=== PATIENT | male | born 2000 | race Caucasian/White ===

== ENCOUNTER 2019-10-22 01:29 | Emergency (ER) | payer OTHER, SELFPAY ==
[2019-10-22] MEDS ORDERED: CYCLOBENZAPRINE 10 MG TAB ONE (02:32)
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
--- NOTE | 2019-10-22 09:25 | RAD REPORT ---
EXAM DESCRIPTION: [facility] Single View10/22/2019 4:39 am CLINICAL HISTORY: Chest pain COMPARISON: 2017 FINDINGS: The lungs appear clear of acute infiltrate. The heart is normal size IMPRESSION: No acute abnormalities displayed
--- NOTE | 2019-10-22 09:28 | RAD REPORT ---
EXAM DESCRIPTION: RAD - Ankle Right 3 View - 10/22/2019 9:18 am CLINICAL HISTORY: Right ankle pain FINDINGS: No fracture or dislocation is seen. No bone or joint abnormality
== END 2019-10-22 02:47 | disposition home or self-care (01) ==
LOC: ER 01:29
DX: R51 Headache (principal); R07.9 Chest pain, unspecified; M25.571 Pain in right ankle and joints of right foot; V43.52XA Car driver injured in collision with other type car in traffic accident, initial encounter; Y93.89 Activity, other specified; Y92.410 Unspecified street and highway as the place of occurrence of the external cause
CPT/HCPCS: 71045; 99284

== ENCOUNTER 2019-11-24 22:28 | Emergency (ER) | payer SELFPAY ==
[2019-11-24] MEDS ORDERED: HYDROCODONE/CHLORPHEN 5 ML/OSYR ONE (23:43)
[2019-11-24] MEDS ORDERED: ALBUTEROL 2.5 MG/3 ML NEB SOL ONE (23:43)
[2019-11-24] MEDS ORDERED: dexAMETHasone 4 MG/ML VIAL ONE (23:44)
[2019-11-24] MEDS ORDERED: ACETAMINOPHEN 500 MG TAB ONE (23:44)
--- NOTE | 2019-11-24 23:56 | EDPHYS ---
Physician Documentation [facility] Name: Greg Leslie Age: 19 yrs Sex: Male : 2000 Arrival Date: 11/24/2019 Time: 22:34 Bed 27 Private MD: ED Physician Ken Chandler HPI: 11/23 23:57 This 19 yrs old Male presents to ER via Ambulatory with complaints of Chest snw Pain, Breathing Difficulty. 23:57 The patient or guardian reports airway noise, cough, difficulty breathing, flu snw symptoms. Onset: The symptoms/episode began/occurred gradually, 1 week(s) ago, and became worse this morning, and became persistent. Associated signs and symptoms: Pertinent positives: chest pain, with cough, fever, nausea, sore throat. Severity of symptoms: At their worst the symptoms were moderate severe. The patient has not experienced similar symptoms in the past. no, pt took an inhaler from a friend and it has helped some. Historical: - Allergies: 23:00 No Known Allergies; bb - Home Meds: 23:00 None [Active]; bb - PMHx: 23:00 Asthma; Seizures; bb - PSHx: 23:00 Hernia repair; pilonidal cyst removed; bb - Immunization history:: Adult Immunizations up to date. - Social history:: Smoking status: Patient/guardian denies using tobacco, Stopped _ months ago 2. ROS: 11/24 00:00 Eyes: Negative for injury, pain, redness, and discharge, ENT: Negative for injury, snw pain, and discharge, Neck: Negative for injury, pain, and swelling, Cardiovascular: Negative for chest pain, palpitations, and edema. Neck: Negative for injury and swelling, + posterior lateral neck tenderness worsening with cough Abdomen/GI: Negative for abdominal pain, nausea, vomiting, diarrhea, and constipation, Back: Negative for injury and pain, : Negative for injury, bleeding, discharge, and swelling, MS/Extremity: Negative for injury and deformity, Skin: Negative for injury, rash, and discoloration, Neuro: Negative for headache, weakness, numbness, tingling, and seizure. Constitutional: Positive for body aches, chills, fever, malaise, poor PO intake. Respiratory: Positive for cough, hemoptysis, orthopnea, pleurisy, shortness of breath, wheezing, expiratory. Exam: 11/23 23:59 Head/Face: Normocephalic, atraumatic. Eyes: Pupils equal round and reactive to light, snw extra-ocular motions intact. Lids and lashes normal. Conjunctiva and sclera are non-icteric and not injected. Cornea within normal limits. Periorbital areas with no swelling, redness, or edema. ENT: Nares patent. No nasal discharge, no septal abnormalities noted. Tympanic membranes are normal and external auditory canals are clear. Oropharynx with no redness, swelling, or masses, exudates, or evidence of obstruction, uvula midline. Mucous membranes moist. Neck: Trachea midline, no thyromegaly or masses palpated, and no cervical lymphadenopathy. Supple, full range of motion without nuchal rigidity, or vertebral point tenderness. No Meningismus. Chest/axilla: Normal chest wall appearance and motion. Nontender with no deformity. No lesions are appreciated. Abdomen/GI: Soft, non-tender, with normal bowel sounds. No distension or tympany. No guarding or rebound. No evidence of tenderness throughout. Back: No spinal tenderness. No costovertebral tenderness. Full range of motion. Skin: Warm, dry with normal turgor. Normal color with no rashes, no lesions, and no evidence of cellulitis. MS/ Extremity: Pulses equal, no cyanosis. Neurovascular intact. Full, normal range of motion. Neuro: Awake and alert, GCS 15, oriented to person, place, time, and situation. Cranial nerves II-XII grossly intact. Motor strength 5/5 in all extremities. Sensory grossly intact. Cerebellar exam normal. Normal gait. Psych: Awake, alert, with orientation to person, place and time. Behavior, mood, and affect are within normal limits. Constitutional: The patient appears alert, awake, obese, obviously ill, uncomfortable. Cardiovascular: Rate: tachycardic, Heart sounds: normal. Respiratory: the patient does not display signs of respiratory distress, Respirations: shallow respirations, splinting, tachypnea, Breath sounds: bronchial sounds, decreased breath sounds, + upper airway congestion. wheezing: bronchitic, painful cough. Vital Signs: 22:58 BP 142 / 92; Pulse 99; Resp 16 S; Temp 101.4(O); Pulse Ox 95% on R/A; Weight 106.59 kg bb (R); Height 5 ft. 11 in. (180.34 cm) (R); Pain 9/10; 11/24 00:36 Pulse 96; Resp 17 S; Pulse Ox 96% on R/A; jd3 11/23 22:58 Body Mass Index 32.78 (106.59 kg, 180.34 cm) bb MDM: 11/23 23:13 Patient medically screened. snw 23:56 Data reviewed: vital signs, nurses notes. Data interpreted: Pulse oximetry: on room air snw is 95 %. Interpretation: hypoxia. Plan: will initiate a nebulizer treatment. Counseling: I had a detailed discussion with the patient and/or guardian regarding: the historical points, exam findings, and any diagnostic results supporting the discharge/admit diagnosis, the presence of at least one elevated blood pressure reading (>120/80) during this emergency department visit, lab results, radiology results, the need for outpatient follow up, to return to the emergency department if symptoms worsen or persist or if there are any questions or concerns that arise at home. Special discussion: Based on the patient's history, exam, and Dx evaluation, there is no indication for emergent intervention or inpatient Tx. It is understood by the patient/guardian that if the Sx's persist or worsen they need to return immediately for re-evaluation. I have referred the patient to see his PCP for further evaluation of high blood pressure. Based on the history and exam findings, there is no indication for further emergent testing or inpatient evaluation. I discussed with the patient/guardian the need to see the primary care provider for further evaluation of the symptoms. ED course: pt and family ask for most frugal tx plan as pt does not have insurance or funds. 11/23 23:02 Order name: Flu; Complete Time: 23:52 bb 11/23 23:02 Order name: Strep; Complete Time: 23:52 bb 11/23 23:13 Order name: Chest Pa And Lat (2 Views) XRAY snw 11/23 23:50 Order name: Throat Culture EDMS Administered Medications: 23:20 Drug: Albuterol 2.5 mg Route: Inhalation; jd3 23:40 Drug: Albuterol 2.5 mg Route: Inhalation; jd3 11/24 00:00 Drug: Decadron - Dexamethasone 10 mg {Note: given PO per order.} Route: IVP; Site: jd3 Other; 00:34 Follow up: Response: No adverse reaction jd3 00:01 Drug: Tylenol 1000 mg Route: PO; jd3 00:34 Follow up: Response: No adverse reaction jd3 00:01 Drug: Albuterol 2.5 mg Route: Inhalation; jd3 00:34 Follow up: Response: No adverse reaction jd3 00:36 Follow up: Response: No adverse reaction jd3 00:36 Follow up: Response: No adverse reaction jd3 00:01 Drug: Tussionex Pennkinetic ER 5 ml Route: PO; jd3 00:34 Follow up: Response: No adverse reaction jd3 00:36 Follow up: Response: No adverse reaction jd3 00:15 Drug: Bicillin L-A 1.2 million units Route: IM; Site: right gluteus; jd3 00:33 Follow up: Response: No adverse reaction jd3 00:20 Drug: Zithromax 500 mg Route: PO; jd3 00:34 Follow up: Response: No adverse reaction jd3 Disposition: 07:04 Co-signature as Attending Physician, Ken Chandler MD I agree with the assessment and tw4 plan of care. Disposition: 11/24/19 23:55 Discharged to Home. Impression: Pneumonia, unspecified organism, Acute bronchitis. - Condition is Stable. - Discharge Instructions: Acute Bronchitis, Adult, Fever, Adult, Cough, Adult, Rehydration, Adult. - Prescriptions for Zithromax 500 mg Oral Tablet - take 1 tablet by ORAL route once daily for 5 days; 5 tablet. - Work release form, Medication Reconciliation Form, Thank You Letter, Antibiotic Education, Prescription Opioid Use form. - Follow up: Emergency Department; When: As needed; Reason: Worsening of condition. Follow up: Private Physician; When: 1 week; Reason: Recheck today's complaints, Continuance of care, Re-evaluation by your physician. Signatures: Dispatcher [employer] Geetha Garcia FNP-C RUBBER MIXER-Yocasta Gutierrez, RN RN Cuco Carnes RN Ken Andres MD MD tw4 Corrections: (The following items were deleted from the chart) 00:37 11/23 23:55 11/24/2019 23:55 Discharged to Home. Impression: Pneumonia, unspecified jd3 organism; Acute bronchitis. Condition is Stable. Forms are Medication Reconciliation Form, Thank You Letter, Antibiotic Education, Prescription Opioid Use. Follow up: Emergency Department; When: As needed; Reason: Worsening of condition. Follow up: Private Physician; When: 1 week; Reason: Recheck today's complaints, Continuance of care, Re-evaluation by your physician. snw
--- NOTE | 2019-11-24 23:56 | ER ---
Nurse's Notes [facility] Name: Greg Leslie Age: 19 yrs Sex: Male : 2000 Arrival Date: 11/24/2019 Time: 22:34 Bed 27 Private MD: Diagnosis: Pneumonia, unspecified organism;Acute bronchitis Presentation: 11/23 22:58 Chief complaint: Patient states: he has been coughing, with fever, sore neck x 4 days. bb Coronavirus screen: The patient has NOT traveled to a country currently being monitored by the [facility] within the last 14 days. Proceed with normal triage procedures. Ebola Screen: No symptoms or risks identified at this time. Initial Sepsis Screen: Does the patient meet any 2 criteria? No. Patient's initial sepsis screen is negative. Does the patient have a suspected source of infection? No. Patient's initial sepsis screen is negative. Risk Assessment: Do you want to hurt yourself or someone else? Patient reports no desire to harm self or others. Onset of symptoms was November 20, 2019. 22:58 Method Of Arrival: Ambulatory 22:58 Acuity: DAYO 3 bb Triage Assessment: 23:00 General: Appears in no apparent distress. uncomfortable, Behavior is calm, cooperative. bb Pain: Complains of pain in chest and neck Pain currently is 9 out of 10 on a pain scale. Neuro: Level of Consciousness is awake, alert, obeys commands, Oriented to person, place, time, situation. Cardiovascular: No deficits noted. Respiratory: Reports pain with cough Respiratory effort is even, unlabored, Respiratory pattern is regular. Derm: Skin is pink, warm \T\ dry. Musculoskeletal: Circulation, motion, and sensation intact. Historical: - Allergies: 23:00 No Known Allergies; bb - Home Meds: 23:00 None [Active]; bb - PMHx: 23:00 Asthma; Seizures; bb - PSHx: 23:00 Hernia repair; pilonidal cyst removed; bb - Immunization history:: Adult Immunizations up to date. - Social history:: Smoking status: Patient/guardian denies using tobacco, Stopped _ months ago 2. Screenin/10 00:05 Abuse screen: Denies threats or abuse. Nutritional screening: No deficits noted. jd3 Tuberculosis screening: No symptoms or risk factors identified. Fall Risk Ambulatory Aid- None/Bed Rest/Nurse Assist (0 pts). Gait- Normal/Bed Rest/Wheelchair (0 pts) Mental Status- Oriented to own ability (0 pts). Total Hicks Fall Scale indicates No Risk (0-24 pts). Assessment: 00:02 General: Appears in no apparent distress. uncomfortable, Behavior is calm, cooperative, jd3 appropriate for age. Pain: Complains of pain in chest Pain does not radiate. Quality of pain is described as aching, pressure, Pain began gradually. Neuro: Level of Consciousness is awake, alert, obeys commands, Oriented to person, place, time, situation. Cardiovascular: Reports chest pain, Heart tones S1 S2 present Capillary refill < 3 seconds Patient's skin is warm and dry. Respiratory: Reports shortness of breath at rest cough that is hacking, persistent Airway is patent Respiratory effort is even, unlabored, Respiratory pattern is regular, symmetrical, Breath sounds with wheezes bilaterally. GI: No signs and/or symptoms were reported involving the gastrointestinal system. Abdomen is round non-distended, Reports nausea, vomiting, Patient currently denies abdominal pain. : No signs and/or symptoms were reported regarding the genitourinary system. EENT: No signs and/or symptoms were reported regarding the EENT system. Derm: Skin is intact, Skin is dry, Skin is normal, Skin temperature is warm. Musculoskeletal: Circulation, motion, and sensation intact. Range of motion: intact in all extremities. 00:27 Reassessment: Patient appears in no apparent distress at this time. Patient and/or jd3 family updated on plan of care and expected duration. Pain level reassessed. Patient is alert, oriented x 3, equal unlabored respirations, skin warm/dry/pink. awaiting shot time before discharge. Patient states feeling better. 00:32 Reassessment: Patient appears in no apparent distress at this time. Patient and/or jd3 family updated on plan of care and expected duration. Pain level reassessed. Patient is alert, oriented x 3, equal unlabored respirations, skin warm/dry/pink. even and steady gait upon discharge. Patient states feeling better. Respiratory: Airway is patent Respiratory effort is even, unlabored, Respiratory pattern is regular, symmetrical, Breath sounds are clear bilaterally. Vital Signs: 11/23 22:58 BP 142 / 92; Pulse 99; Resp 16 S; Temp 101.4(O); Pulse Ox 95% on R/A; Weight 106.59 kg bb (R); Height 5 ft. 11 in. (180.34 cm) (R); Pain 9/; 11/24 00:36 Pulse 96; Resp 17 S; Pulse Ox 96% on R/A; jd3 11/23 22:58 Body Mass Index 32.78 (106.59 kg, 180.34 cm) ED Course: 11/23 22:34 Patient arrived in ED. es 22:59 Triage completed. bb 23:00 Arm band placed on. Family accompanied patient. bb 23:12 Geetha Garcia FNP-C is PHCP. snw 23:12 Ken Chandler MD is Attending Physician. snw 23:34 Cuco Car RN is Primary Nurse. jd3 11/24 00:05 Patient has correct armband on for positive identification. Placed in gown. Bed in low jd3 position. Call light in reach. Side rails up X 1. Adult w/ patient. certified hyperbaric technologist on. Pulse ox on. NIBP on. 00:05 Patient did not have IV access during this emergency room visit. Patient maintains SpO2 jd3 saturation greater than 95% on room air. 00:28 No provider procedures requiring assistance completed. jd3 00:29 Chest Pa And Lat (2 Views) XRAY In Process Unspecified. EDMS Administered Medications: 11/23 23:20 Drug: Albuterol 2.5 mg Route: Inhalation; jd3 23:40 Drug: Albuterol 2.5 mg Route: Inhalation; jd3 11/24 00:00 Drug: Decadron - Dexamethasone 10 mg {Note: given PO per order.} Route: IVP; Site: j Other; 00:34 Follow up: Response: No adverse reaction jd3 00:01 Drug: Tylenol 1000 mg Route: PO; jd3 00:34 Follow up: Response: No adverse reaction jd3 00:01 Drug: Albuterol 2.5 mg Route: Inhalation; jd3 00:34 Follow up: Response: No adverse reaction jd3 00:36 Follow up: Response: No adverse reaction jd3 00:36 Follow up: Response: No adverse reaction jd3 00:01 Drug: Tussionex Pennkinetic ER 5 ml Route: PO; jd3 00:34 Follow up: Response: No adverse reaction jd3 00:36 Follow up: Response: No adverse reaction jd3 00:15 Drug: Bicillin L-A 1.2 million units Route: IM; Site: right gluteus; jd3 00:33 Follow up: Response: No adverse reaction jd3 00:20 Drug: Zithromax 500 mg Route: PO; jd3 00:34 Follow up: Response: No adverse reaction jd3 Outcome: 11/23 23:55 Discharge ordered by MD. gan 11/24 00:33 Discharged to home ambulatory, with family. jd3 Condition: stable Discharge instructions given to patient, family, Instructed on discharge instructions, follow up and referral plans. medication usage, Demonstrated understanding of instructions, follow-up care, medications, Prescriptions given X 1. 00:37 Patient left the ED. jd3 Signatures: Dispatcher [employer] Geetha Miller, SABA-C MANAGER [employer] Edna Francisco Brenda, RN RN bb Davies, Jonathon, RN RN jd3
[2019-11-25] MEDS ORDERED: AZITHROMYCIN 250 MG TAB ONE (00:15)
[2019-11-25] MEDS ORDERED: PEN G BENZ LA 1.2MU/2ML SYRINGE IM ONE (00:17)
[2019-11-25 01:21] VITALS: BP 142/92; TEMP 101.4
[2019-11-25 01:22] VITALS: O2SAT 96
--- NOTE | 2019-11-25 07:54 | RAD REPORT ---
EXAM DESCRIPTION: Mahamed Espinal And Luna (2 Views)11/25/2019 12:27 am CLINICAL HISTORY: Cough COMPARISON: October 2019 FINDINGS: The lungs are hyperaerated The lungs appear clear of acute infiltrate. The heart is normal size IMPRESSION: No acute abnormalities displayed
== END 2019-11-25 00:37 | disposition home or self-care (01) ==
LOC: ER 22:28
DX: J18.9 Pneumonia, unspecified organism (principal); J20.9 Acute bronchitis, unspecified
CPT/HCPCS: 71046; 87070; 87081; 87804; 96372; 96374; 99285; J0561

== ENCOUNTER 2019-11-25 20:41 | Emergency (ER) | payer SELFPAY ==
--- NOTE | 2019-11-25 21:12 | ER ---
Nurse's Notes [facility] Name: Greg Leslie Age: 19 yrs Sex: Male : 2000 Arrival Date: 11/25/2019 Time: 20:42 Bed 13 Private MD: Diagnosis: Cellulitis of buttock;Bronchitis, not specified as acute or chronic Presentation: 11/24 20:49 Chief complaint: Patient states: "I think I might have another cyst on my butt.". jd3 Coronavirus screen: The patient has NOT traveled to a country currently being monitored by the [facility] within the last 14 days. The patient has NOT had contact with any known and/or suspected case of coronavirus. Proceed with normal triage procedures. Ebola Screen: Patient negative for fever greater than or equal to 101.5 degrees Fahrenheit, and additional compatible Ebola Virus Disease symptoms. Initial Sepsis Screen: Does the patient meet any 2 criteria? No. Patient's initial sepsis screen is negative. Does the patient have a suspected source of infection? No. Patient's initial sepsis screen is negative. Risk Assessment: Do you want to hurt yourself or someone else? Patient reports no desire to harm self or others. 20:49 Method Of Arrival: Ambulatory jd3 20:49 Acuity: DAYO 3 jd3 Triage Assessment: 21:30 General: Appears in no apparent distress. comfortable, Behavior is calm, cooperative. mg2 Historical: - Allergies: 20:50 No Known Allergies; jd3 - Home Meds: 20:50 None [Active]; jd3 - PMHx: 20:50 Asthma; Seizures; jd3 - PSHx: 20:50 Hernia repair; pilonidal cyst removed; jd3 - Immunization history:: Adult Immunizations up to date. - Social history:: Smoking status: Patient/guardian denies using tobacco, Stopped _ months ago 2. - Family history:: not pertinent. Screenin:35 Abuse screen: Denies threats or abuse. Denies injuries from another. Nutritional mg2 screening: No deficits noted. Tuberculosis screening: No symptoms or risk factors identified. 21:35 Fall Risk None identified. mg2 Assessment: 21:30 General: Appears in no apparent distress. comfortable. Pain: Complains of pain in mg2 buttocks. Neuro: Level of Consciousness is awake, alert, obeys commands, Oriented to person, place, time, situation. Cardiovascular: Capillary refill < 3 seconds Patient's skin is warm and dry. Respiratory: Airway is patent Respiratory effort is even, unlabored, Respiratory pattern is regular, symmetrical. GI: Reports vomiting. : No signs and/or symptoms were reported regarding the genitourinary system. EENT: Reports nasal bleeding. Derm: Skin is intact, is healthy with good turgor, Skin is pink, warm \\T\\ dry. normal. Musculoskeletal: Circulation, motion, and sensation intact. Capillary refill < 3 seconds. Vital Signs: 20:50 BP 137 / 81; Pulse 95; Resp 17 S; Temp 97.8(TE); Pulse Ox 95% on R/A; Weight 106.59 kg jd3 (R); Height 5 ft. 10 in. (177.80 cm) (R); Pain 8/10; 21:40 BP 130 / 78; Pulse 89; Resp 18; Temp 97.5; Pulse Ox 100% on R/A; mg2 20:50 Body Mass Index 33.72 (106.59 kg, 177.80 cm) jd3 ED Course: 20:42 Patient arrived in ED. cl3 20:50 Triage completed. jd3 20:51 Arm band placed on. jd3 20:54 Ambrocio Lu MD is Attending Physician. yessenia 21:09 Av Reed MD is Referral Physician. yessenia 21:19 Henry Rodriguez, PAULA is Primary Nurse. mg2 21:35 No provider procedures requiring assistance completed. mg2 21:35 Patient did not have IV access during this emergency room visit. mg2 22:00 Patient has correct armband on for positive identification. mg2 Administered Medications: 21:35 Drug: AtroVENT Aerosol 0.5 mg Route: Inhalation; mg2 21:45 Follow up: Response: No adverse reaction mg2 21:35 Drug: Bactrim (160 mg-800 mg (DS) 1 tablet Route: PO; mg2 21:40 Follow up: Response: No adverse reaction mg2 21:35 Drug: predniSONE 40 mg Route: PO; mg2 21:40 Follow up: Response: No adverse reaction mg2 21:36 Drug: Cipro 250 mg Route: PO; mg2 21:45 Follow up: Response: No adverse reaction mg2 21:36 Drug: Cipro 500 mg Route: PO; mg2 21:45 Follow up: Response: No adverse reaction mg2 21:36 Drug: Dewey 10 mg-325 mg 1 tabs Route: PO; mg2 21:45 Follow up: Response: No adverse reaction mg2 21:36 Drug: Xopenex 1.25 mg Route: Inhalation; mg2 21:45 Follow up: Response: No adverse reaction mg2 Outcome: 21:10 Discharge ordered by . [facility] 21:46 Patient left the ED. mg2 21:46 Discharged to home ambulatory, with family. mg2 21:46 Condition: stable mg2 21:46 Discharge instructions given to patient, family, Instructed on discharge instructions, follow up and referral plans. medication usage, wound care, Demonstrated understanding of instructions, follow-up care, medications, wound care, Prescriptions given X 4. Signatures: Ambrocio Lu MD MD cha Davies, Jonathon RN RN jd3 Henry Rodriguez RN RN mg2 Colleen Mars cl3
--- NOTE | 2019-11-25 21:12 | EDPHYS ---
Physician Documentation [facility] Name: Greg Leslie Age: 19 yrs Sex: Male : 2000 Arrival Date: 11/25/2019 Time: 20:42 Bed 13 Private MD: ED Physician Ambrocio Lu HPI: 11/24 21:05 This 19 yrs old Male presents to ER via Ambulatory with complaints of yessenia Reaction. 21:05 the patient presents with a swollen area of the coccyx. Description: tender. Possible yessenia cause(s): unknown. Associated signs and symptoms: Pertinent positives: shortness of breath. The patient or guardian reports cough, that is intermittent, flu symptoms, myalgias. Severity of symptoms: At their worst the symptoms were mild, in the emergency department the symptoms are unchanged. 21:06 Modifying factors: the symptoms are alleviated by nothing, the symptoms are aggravated yessenia by nothing. Historical: - Allergies: 20:50 No Known Allergies; jd3 - Home Meds: 20:50 None [Active]; jd3 - PMHx: 20:50 Asthma; Seizures; jd3 - PSHx: 20:50 Hernia repair; pilonidal cyst removed; jd3 - Immunization history:: Adult Immunizations up to date. - Social history:: Smoking status: Patient/guardian denies using tobacco, Stopped _ months ago 2. - Family history:: not pertinent. ROS: 21:06 Constitutional: Negative for fever, chills, and weight loss, Eyes: Negative for injury, yessenia pain, redness, and discharge, ENT: Negative for injury, pain, and discharge, Neck: Negative for injury, pain, and swelling, Cardiovascular: Negative for chest pain, palpitations, and edema, Abdomen/GI: Negative for abdominal pain, nausea, vomiting, diarrhea, and constipation, Back: Negative for injury and pain, : Negative for injury, bleeding, discharge, and swelling, MS/Extremity: Negative for injury and deformity, Neuro: Negative for headache, weakness, numbness, tingling, and seizure, Psych: Negative for depression, anxiety, suicide ideation, homicidal ideation, and hallucinations, Allergy/Immunology: Negative for hives, rash, and allergies, Endocrine: Negative for neck swelling, polydipsia, polyuria, polyphagia, and marked weight changes, Hematologic/Lymphatic: Negative for swollen nodes, abnormal bleeding, and unusual bruising. 21:06 Respiratory: Positive for cough, "sounds productive". 21:06 Skin: Positive for erythema. Exam: 21:06 Constitutional: This is a well developed, well nourished patient who is awake, alert, yessenia and in no acute distress. Head/Face: Normocephalic, atraumatic. Eyes: Pupils equal round and reactive to light, extra-ocular motions intact. Lids and lashes normal. Conjunctiva and sclera are non-icteric and not injected. Cornea within normal limits. Periorbital areas with no swelling, redness, or edema. ENT: Nares patent. No nasal discharge, no septal abnormalities noted. Tympanic membranes are normal and external auditory canals are clear. Oropharynx with no redness, swelling, or masses, exudates, or evidence of obstruction, uvula midline. Mucous membranes moist. Neck: Trachea midline, no thyromegaly or masses palpated, and no cervical lymphadenopathy. Supple, full range of motion without nuchal rigidity, or vertebral point tenderness. No Meningismus. Chest/axilla: Normal chest wall appearance and motion. Nontender with no deformity. No lesions are appreciated. Cardiovascular: Regular rate and rhythm with a normal S1 and S2. No gallops, murmurs, or rubs. Normal PMI, no JVD. No pulse deficits. Abdomen/GI: Soft, non-tender, with normal bowel sounds. No distension or tympany. No guarding or rebound. No evidence of tenderness throughout. Back: No spinal tenderness. No costovertebral tenderness. Full range of motion. MS/ Extremity: Pulses equal, no cyanosis. Neurovascular intact. Full, normal range of motion. Neuro: Awake and alert, GCS 15, oriented to person, place, time, and situation. Cranial nerves II-XII grossly intact. Motor strength 5/5 in all extremities. Sensory grossly intact. Cerebellar exam normal. Normal gait. Psych: Awake, alert, with orientation to person, place and time. Behavior, mood, and affect are within normal limits. 21:06 Respiratory: the patient does not display signs of respiratory distress, Respirations: normal, Breath sounds: rhonchi, that are mild, + upper airway congestion. Respiratory rate: 17 Vital Signs: 20:50 BP 137 / 81; Pulse 95; Resp 17 S; Temp 97.8(TE); Pulse Ox 95% on R/A; Weight 106.59 kg jd3 (R); Height 5 ft. 10 in. (177.80 cm) (R); Pain 8/10; 21:40 BP 130 / 78; Pulse 89; Resp 18; Temp 97.5; Pulse Ox 100% on R/A; mg2 20:50 Body Mass Index 33.72 (106.59 kg, 177.80 cm) jd3 MDM: 20:54 Patient medically screened. [facility] 21:08 Data reviewed: vital signs, nurses notes, radiologic studies. [facility] 11/24 21:41 Order name: Glucose, Ancillary Testing EDNY 11/24 21:09 Order name: Blood Glucose Level; Complete Time: 21:35 [facility] Administered Medications: 21:35 Drug: AtroVENT Aerosol 0.5 mg Route: Inhalation; mg2 21:45 Follow up: Response: No adverse reaction mg2 21:35 Drug: Bactrim (160 mg-800 mg (DS) 1 tablet Route: PO; mg2 21:40 Follow up: Response: No adverse reaction mg2 21:35 Drug: predniSONE 40 mg Route: PO; mg2 21:40 Follow up: Response: No adverse reaction mg2 21:36 Drug: Cipro 250 mg Route: PO; mg2 21:45 Follow up: Response: No adverse reaction mg2 21:36 Drug: Cipro 500 mg Route: PO; mg2 21:45 Follow up: Response: No adverse reaction mg2 21:36 Drug: [place] 10 mg-325 mg 1 tabs Route: PO; mg2 21:45 Follow up: Response: No adverse reaction mg2 21:36 Drug: Xopenex 1.25 mg Route: Inhalation; mg2 21:45 Follow up: Response: No adverse reaction mg2 Disposition: 11/25/19 21:10 Discharged to Home. Impression: Cellulitis of buttock, Bronchitis, not specified as acute or chronic. - Condition is Stable. - Discharge Instructions: Acute Bronchitis, Adult, Cellulitis, Adult, How to Use an Inhaler, How to Take a Sitz Bath, Upper Respiratory Infection, Adult, Cellulitis, Adult, Dbaz-[id number], Upper Respiratory Infection, Adult, Uvik-ey-Ntag, Cough, Adult. - Prescriptions for Cipro 500 mg Oral Tablet - take 1 tablet by ORAL route every 12 hours for 7 days; 14 tablet. Medrol (Devan) 4 mg Oral Tablets, Dose Pack - take 1 tablet by ORAL route as directed - follow package instructions; 1 packet. Bactrim DS 800- 160 mg Oral Tablet - take 1 tablet by ORAL route every 12 hours for 10 days; 20 tablet. Albuterol Sulfate 90 mcg/actuation - inhale 1-2 puff by INHALATION route every 4-6 hours; 1 Inhaler. - Medication Reconciliation Form, Thank You Letter, Antibiotic Education, Prescription Opioid Use form. - Follow up: Private Physician; When: 2 - 3 days; Reason: Recheck today's complaints, Continuance of care, Re-evaluation by your physician. Follow up: Av Reed MD; When: 2 - 3 days; Reason: Recheck today's complaints, Continuance of care, Re-evaluation by your physician. - Problem is new. - Symptoms have improved. Signatures: Dispatcher [employer] EDNY Ambrocio Lu MD MD cha Davies, Jonathon, RN RN jd3 Henry Rodriguez RN RN mg2 Corrections: (The following items were deleted from the chart) 21:46 21:10 11/25/2019 21:10 Discharged to Home. Impression: Cellulitis of buttock; mg2 Bronchitis, not specified as acute or chronic. Condition is Stable. Forms are Medication Reconciliation Form, Thank You Letter, Antibiotic Education, Prescription Opioid Use. Follow up: Private Physician; When: 2 - 3 days; Reason: Recheck today's complaints, Continuance of care, Re-evaluation by your physician. Follow up: Dr. Av Reed; When: 2 - 3 days; Reason: Recheck today's complaints, Continuance of care, Re-evaluation by your physician. Problem is new. Symptoms have improved. yessenia
[2019-11-25] MEDS ORDERED: IPRATROPIUM BROM 0.5MG/2.5ML ONE (21:27)
[2019-11-25] MEDS ORDERED: CIPROFLOXACIN HCL 500 MG TAB ONE (21:27)
[2019-11-25] MEDS ORDERED: predniSONE 20 MG TAB ONE (21:28)
[2019-11-25] MEDS ORDERED: SMZ./TMP. 800/160 MG TABLET ONE (21:28)
[2019-11-25] MEDS ORDERED: LEVALBUTEROL 1.25 MG/3 ML NEB ONE (21:28)
[2019-11-25] MEDS ORDERED: HYDROCODONE/APAP 10/325 TAB ONE (21:28)
[2019-11-25 22:36] VITALS: BP 137/81; TEMP 97.8; O2SAT 95
== END 2019-11-25 21:46 | disposition home or self-care (01) ==
LOC: ER 20:41
DX: J40 Bronchitis, not specified as acute or chronic (principal); L03.317 Cellulitis of buttock
CPT/HCPCS: 82947; 99284; J7512